=== PATIENT | male | born 1980 | race Caucasian/White ===

== ENCOUNTER 2024-08-01 11:34 | Emergency (ER) | payer OTHER, SELFPAY ==
[2024-08-01 11:56] VITALS: BP 113/81; PULSE 82; RESP 16; TEMP 36.6; O2SAT 98
--- NOTE | 2024-08-01 12:03 | ED.URI ---
HPI - URI/Sore Throat General Chief Complaint: Upper Respiratory Infection Stated Complaint: Sore Throat/Cough Source: patient and RN notes reviewed Mode of arrival: ambulatory Limitations: no limitations History of Present Illness HPI Narrative: 43 y/o male presented for c/o sore throat and cough x3 days. Denies sob, wheezing, n/v/d/f/c or lethargy. Taking ibuprofen and mucinex. Exposed to coworker with pneumonia. MD elicited complaint: cough Related Data Home Medications Medication Instructions Recorded Confirmed fluticasone propionate 50 1 spray intranasal DAILY 08/01/24 08/01/24 mcg/actuation nasal spray,suspension Allergies Allergy/AdvReac Type Severity Reaction Status Date / Time No Known Allergies Allergy Mild Verified 08/01/24 11:55 Review of Systems Review of Systems: CONSTITUTIONAL: denies malaise, chills, sweats, fever EYES: Denies visual changes, redness, or discharge ENT: Reports rhinorrhea, congestion, sore throat CARDIOVASCULAR: Denies chest pain, palpitations, edema RESPIRATORY: Reports cough, post nasal drainage. Denies dyspnea GASTROINTESTINAL: Denies abdominal pain, nausea, vomiting, diarrhea SKIN: Denies rash or itching MUSCULOSKELETAL: Denies myalgia PMFSH Social History Social History Smoking status: Never smoker Alcohol intake: current Exam Narrative: GENERAL:well-appearing, nontoxic EYES: conjunctivae clear ENT: Mucous membranes moist. TM pearly lira with dull light reflex bilaterally; no tragal tenderness. Oropharynx mildly erythematous without lesions or exudate, no drooling, no hoarseness, no trismus, uvula midline. CHEST: Clear to auscultation, breath sounds equal. No wheezing, rhonchi, rales, or stridor. No respiratory distress, speaks in full sentences. HEART: Regular rate and rhythm. SKIN: Warm, dry, no rash. NEURO: Alert and oriented x3. PSYCH: Normal mood and affect Course Course Emergency Course: Patient is aware of diagnosis, understands and agrees to treatment plan. Anticipatory guidance given. Patient agrees to follow-up as directed and is aware of reasons to seek care at the emergency department. Portions of this record may have been created with voice recognition software Level of Care: Express Care Visit Vital Signs Vital signs: Vital Signs Temperature 97.9 F 08/01/24 11:56 Pulse Rate 82 08/01/24 11:56 Respiratory Rate 16 08/01/24 11:56 Blood Pressure 113/81 08/01/24 11:56 Pulse Oximetry 98 08/01/24 11:56 Oxygen Delivery Room Air 08/01/24 11:56 Temperature 97.9 F 08/01/24 11:56 Pulse Rate 82 08/01/24 11:56 Respiratory Rate 16 08/01/24 11:56 Blood Pressure 113/81 08/01/24 11:56 Pulse Oximetry 98 08/01/24 11:56 Oxygen Delivery Room Air 08/01/24 11:56 reviewed MDM - URI/Sore Throat MDM Narrative Medical decision making narrative: Negative strep flu and COVID Discussed physical exam findings. Advised supportive measures and signs/symptoms to go to the ER. Pt is appropriate for outpt treatment and f/u. Differential Diagnosis Differential diagnosis: Likely upper respiratory infection, sinusitis, viral infection, bronchitis, influenza and pharyngitis Lab Data Labs: Lab Results 08/01/24 Range/Units 12:08 POC Influenza A Ag Negative (Negative) POC Influenza B Ag Negative (Negative) POC SARS CoV-2 Ag Negative (Negative) Discharge Plan Discharge Clinical Impression: Upper respiratory infection Patient Disposition: Home, Self-Care Condition: Stable Instructions: Antibiotic Form, Upper Respiratory Infection (ED) Additional Instructions: Flu and COVID negative Rapid strep swab was negative today You will be notified in a few days if the culture comes back positive for strep, and appropriate antibiotics will be called in at that time. if symptoms are due to a viral illness, it is not treated
[2024-08-01 12:09] LABS: EDCOVIDSCREEN Negative (Negative); EDINFLUASCREEN Negative (Negative); EDINFLUBSCREEN Negative (Negative)
[2024-08-01 12:32] LABS: EDSTREPNEGPOS1 Negative (Negative)
== END 2024-08-01 12:37 | disposition home or self-care (01) ==
PROVIDERS: Emergency Provider Nurse Practitioner Family
DX: J06.9 Acute upper respiratory infection, unspecified (principal); Z20.822 Contact with and (suspected) exposure to COVID-19
CPT/HCPCS: 87081; 87426; 87804; 87880; 99213; G0463